=== PATIENT | female | born 1975 | race Two or more races ===

== ENCOUNTER 2022-06-01 11:05 | Emergency (ER) | payer SELFPAY ==
[~2022-06-01] VITALS: Ht 154.9 cm; Wt 57.7 kg
[2022-06-01 12:06] LABS: Basophils # (auto) 0 10 ^3/uL (0-0.2); Basophils % (auto) 0.7 % (0.0-2.0); Eosinophils # (auto) 0 10 ^3/uL (0-0.8); Eosinophils % (auto) 0.3 % (0.0-7.0); Hematocrit 40.3 % (36.0-46.0); Hemoglobin 13.4 g/dL (12.2-16.2); Lymphocytes # (auto) 1.1 10 ^3/uL (0.4-5.4); Lymphocytes % (auto) 19.4 % (10.0-50.0); Mean Corpuscular Hemoglobin 30.3 pg (28.0-32.0); Mean Corpuscular Hgb Conc. 33.2 g/dL (32.0-36.0); Mean Corpuscular Volume 91.3 fL (80.0-100.0); Monocytes # (auto) 0.8 10 ^3/uL (0-1.3); Monocytes % (auto) 14.4 % (0.0-12.0); Neutrophils # (auto) 3.8 10 ^3/uL (1.6-8.6); Neutrophils % (auto) 65.2 % (37.0-80.0); Red Blood Cells 4.42 10^6/uL (4.0-5.20); Red Cell Distribution Width 14.1 % (11.8-14.3); White Blood Cell 5.8 10^3/uL (4.4-10.8)
[2022-06-01 12:49] LABS: Potassium 3.9 mmol/L (3.5-5.1)
[2022-06-01 12:56] LABS: BUN/Creatinine Ratio 20.8; Bilirubin, Total 0.3 mg/dL (0.2-1.0); CRP High Sensitivity 0.12 mg/dL (< 0.3); Calcium 8.7 mg/dL (8.5-10.1); Total Protein 7.3 g/dL (6.4-8.2)
[2022-06-01] MEDS ORDERED: DICL-163 PO (17:46)
[2022-06-01 17:49] LABS: Urine Bacteria NONE SEEN /hpf (None Seen); Urine Blood Negative /uL (Negative); Urine Specific Gravity 1.021 (1.001-1.035); Urine WBC 1 /hpf (0 - 5)
[2022-06-01 19:40] VITALS: BP 126/85
== END 2022-06-01 19:42 | disposition home or self-care (01) ==
LOC: ER 11:05
DX: M25.542 Pain in joints of left hand (principal); M25.541 Pain in joints of right hand; M25.572 Pain in left ankle and joints of left foot; M25.571 Pain in right ankle and joints of right foot; G62.9 Polyneuropathy, unspecified
CPT/HCPCS: 36415; 73130; 73630; 80053; 81001; 85025; 85652; 86141